=== PATIENT | male | born 1990 | race African-American/Black ===

== ENCOUNTER 2023-02-14 12:13 | Outpatient (CLI) | payer OTHER ==
[2023-02-14 18:21] LABS: BASOPHILS % (AUTO) 0.6 %; EOSINOPHILS # (AUTO) 0.1 10^3/uL (0.0-0.7); EOSINOPHILS % (AUTO) 2.5 %; HGB - HEMOGLOBIN 13.9 g/dL (14.0-18.0); LYMPHOCYTES # (AUTO) 2.7 10^3/uL (1.5-3.5); LYMPHOCYTES % (AUTO) 53.5 %; MEAN CORPUSCULAR HEMOGLOBIN 30.5 pg (27.0-31.0); MEAN CORPUSCULAR HGB CONC 34.8 g/dL (32.0-36.0); MEAN CORPUSCULAR VOLUME 87.9 fL (80.0-94.0); MEAN PLATELET VOLUME 11.3 fL (7.4-11.4); MONOCYTES # (AUTO) 0.4 10^3/uL (0.0-1.0); MONOCYTES % (AUTO) 6.8 %; NEUTROPHILS # (AUTO) 1.9 10^3/uL (1.5-6.6); NEUTROPHILS % (AUTO) 36.4 %; PLT - PLATELET COUNT 213 10^3/uL (130-450); RED BLOOD COUNT 4.55 10^6/uL (4.70-6.10); RED CELL DISTRIBUTION WIDTH 12.4 % (12.0-15.0); WHITE BLOOD COUNT 5.1 x10^3/uL (4.8-10.8)
[2023-02-14 18:45] LABS: ALBUMIN 4.3 g/dL (3.2-5.5); ALBUMIN/GLOBULIN RATIO 1.6 (1.0-2.2); BILIRUBIN,TOTAL 0.7 mg/dL (0.2-1.0); CALCIUM 9.6 mg/dL (8.5-10.3); POTASSIUM 4.5 mmol/L (3.5-4.5)
== END 2023-02-14 12:14 | disposition home or self-care (01) ==
LOC: LAB.N 12:13
PROVIDERS: ATTEND Registered Nurse
DX: R19.5 Other fecal abnormalities (principal); R10.9 Unspecified abdominal pain
CPT/HCPCS: 36415; 80053; 83690; 85025

== ENCOUNTER 2023-03-19 15:18 | Outpatient (CLI) | payer OTHER ==
[2023-03-19 19:35] LABS: BASOPHILS % (AUTO) 0.7 %; EOSINOPHILS # (AUTO) 0.2 10^3/uL (0.0-0.7); EOSINOPHILS % (AUTO) 2.6 %; HCT - HEMATOCRIT 39.9 % (42.0-52.0); HGB - HEMOGLOBIN 13.3 g/dL (14.0-18.0); LYMPHOCYTES # (AUTO) 2.6 10^3/uL (1.5-3.5); LYMPHOCYTES % (AUTO) 44.1 %; MEAN CORPUSCULAR HEMOGLOBIN 30.4 pg (27.0-31.0); MEAN CORPUSCULAR HGB CONC 33.3 g/dL (32.0-36.0); MEAN CORPUSCULAR VOLUME 91.3 fL (80.0-94.0); MONOCYTES # (AUTO) 0.3 10^3/uL (0.0-1.0); MONOCYTES % (AUTO) 5.3 %; NEUTROPHILS # (AUTO) 2.8 10^3/uL (1.5-6.6); PLT - PLATELET COUNT 185 10^3/uL (130-450); RED BLOOD COUNT 4.37 10^6/uL (4.70-6.10); RED CELL DISTRIBUTION WIDTH 12.5 % (12.0-15.0); WHITE BLOOD COUNT 5.9 x10^3/uL (4.8-10.8)
[2023-03-19 19:41] LABS: ALBUMIN 4.3 g/dL (3.2-5.5); ALBUMIN/GLOBULIN RATIO 1.9 (1.0-2.2); BILIRUBIN,TOTAL 0.4 mg/dL (0.2-1.0); CALCIUM 9.2 mg/dL (8.5-10.3); CREATININE 0.9 mg/dL (0.6-1.3); POTASSIUM 3.9 mmol/L (3.5-4.5); TOTAL PROTEIN 6.6 g/dL (6.4-8.9)
[2023-03-19 20:59] LABS: H. PYLORIS ANTIGEN STL NEGATIVE (Negative)
[2023-03-22 00:07] LABS: HBsAG SCREEN Negative (Negative); HCV AB Non Reactive (Non Reactive); HEPATITIS B SURFACE AB QUAL Reactive (.)
== END 2023-03-19 15:19 | disposition home or self-care (01) ==
LOC: LAB.N 15:18
PROVIDERS: ATTEND Physician Assistant
DX: R19.7 Diarrhea, unspecified (principal); R79.89 Other specified abnormal findings of blood chemistry; R10.13 Epigastric pain
CPT/HCPCS: 36415; 80053; 83690; 85025; 86704; 86706; 86709; 86803; 87045; 87046; 87177; 87209; 87338; 87340; 87427

== ENCOUNTER 2023-03-25 08:00 | Outpatient (CLI) | payer MEDICAID ==
[2023-03-25 18:09] LABS: FECAL OCCULT BLOOD (FIT) NEGATIVE (NEGATIVE)
== END 2023-03-25 23:59 | disposition home or self-care (01) ==
LOC: LAB.R 08:00
PROVIDERS: ATTEND Physician Assistant
DX: D64.9 Anemia, unspecified (principal)
CPT/HCPCS: 82274

== ENCOUNTER 2023-03-25 10:12 | Outpatient (CLI) | payer MEDICAID ==
[2023-03-25] MEDS ORDERED: DIATR MEGLU/DIATRIZOATE SODIUM 120 ML BOTTLE ONE (10:15)
[2023-03-25] MEDS ORDERED: DIATRIZOATE MEGLU/DIATRIZO SOD 30 ML BOTTLE PO ONE (15:16)
[2023-03-25] MEDS ORDERED: iohexoL-300 100 ML VIAL IVP ONE (15:16)
--- NOTE | 2023-03-25 16:59 | CT Report ---
PROCEDURE: ABDOMEN/PELVIS W INDICATIONS: ABD PAIN CONTRAST: 100ml omni 300 TECHNIQUE: After the administration of oral and intravenous contrast, 5 mm thick sections acquired from the diap hragms to the symphysis. 5 mm thick coronal and sagittal reformats were acquired. For radiation dos e reduction, the following was used: automated exposure control, adjustment of mA and/or kV accordin g to patient size. COMPARISON: None FINDINGS: Image quality: Excellent. Lung bases and heart: Unremarkable. Liver: No solid mass. Gallbladder and biliary tree: No radiopaque stones or wall thickening. No biliary dilation. Spleen: No splenomegaly. Pancreas: No pancreatic ductal dilation. Adrenals: No adrenal nodule. Kidneys and ureters: No hydronephrosis. No renal cystic lesion which requires follow up. No solid mas s. Bowel and peritoneum: No bowel distension. No pathologic free fluid. Lymph nodes: No central or retroperitoneal adenopathy. Vessels: No infrarenal aortic aneurysm. PELVIS Reproductive organs: Unremarkable. Bladder: No abnormal wall thickening, accounting for underdistension. Pelvic lymph nodes: No pelvic adenopathy by size criteria. Bones: No aggressive osseous abnormality. Other: No significant ventral or inguinal hernia. IMPRESSION: Normal abdominal CT. No findings to explain the patient's lower abdominal pain. No nephrolithiasis. N ormal appendix. No significant diverticular disease. Reviewed by: Dayton Aburto on 03/25/2023 3:58 PM [facility] Approved by: Dayton Aburto on 03/25/2023 3:58 PM [facility] Station ID: [id number]
== END 2023-03-25 10:13 | disposition home or self-care (01) ==
LOC: DI 10:12
PROVIDERS: ATTEND Physician Assistant
DX: R10.13 Epigastric pain (principal); R19.7 Diarrhea, unspecified; R10.30 Lower abdominal pain, unspecified
CPT/HCPCS: 74177; Q9963; Q9967

== ENCOUNTER 2023-05-11 07:33 | Day surgery (SDC) | payer MEDICAID | END 2023-05-11 07:34 | disposition home or self-care (01) | LOC: SDS 07:33 | PROVIDERS: ATTEND Surgery | DX: R19.5 Other fecal abnormalities (principal); K21.9 Gastro-esophageal reflux disease without esophagitis; Z53.09 Procedure and treatment not carried out because of other contraindication ==

== ENCOUNTER 2023-06-28 08:24 | Day surgery (SDC) | payer MEDICAID ==
[2023-06-28] MEDS: LACTATED RINGERS 1,000 ML IV ONE (08:30)
--- NOTE | 2023-06-28 10:03 | ANESTHESIA ---
Pre-Anesthesia VS, & Labs - Diagnosis GERD, abdominal pain, diarrhea - Procedure EGD and colonoscopy Vital Signs: Temp Pulse Resp BP Pulse Ox O2 Flow Rate 36.1 C L 61 16 125/62 100 06/28/23 08:36 06/28/23 08:36 06/28/23 08:36 06/28/23 08:36 06/28/23 08:36 Height: 5 ft 11 in Weight (kg): 101.3 kg Body Mass Index: 31.1 BMI Classification: Obese - NPO >8 hours Home Medications and Allergies Home Medications: Ambulatory Orders Fexofenadine [Amisha] 60 mg PO DAILY 06/28/23 Fexofenadine [Amisha] 60 mg PO DAILY 06/28/23 Allergies/Adverse Reactions: Allergies Allergy/AdvReac Type Severity Reaction Status Date / Time Penicillins AdvReac Severe Anaphylaxis Verified 05/10/23 12:26 Anes History & Medical History - Anesthetic History Family history of Anesthesia Complications: Denies Family history of Malignant Hyperthermia: Denies - Medical History Cardiovascular: reports: None Pulmonary: reports: None Gastrointestinal: reports: GERD, Other Urinary: reports: None Neuro: reports: None Musculoskeletal: reports: None Endocrine/Autoimmune: reports: None Skin: reports: None Smoking Status: Current every day smoker Psychosocial: reports: Cannabis History of Cancer?: No Exam General: Alert, Oriented x3, Cooperative, No acute distress Dental: WNL Mouth Openin Fingerbreadth Neck Mobility: Normal Mallampati classification: I Thyromental Distance: 4-6 cm Mental/Cognitive Status: Alert/Oriented X3, Normal for patient Plan Anesthesia Type: General, Total IV Consent for Procedure(s) Verified and Reviewed: Yes Code Status: Attempt Resuscitation ASA classification: 2-Mild systemic disease Is this case an emergency?: No
[2023-06-28] MEDS ORDERED: LIDOCAINE-MPF 2% 5 ML VIAL ONE (10:25)
[2023-06-28] MEDS ORDERED: MIDAZOLAM 2 MG/2 ML VIAL ONE (10:25)
[2023-06-28] MEDS ORDERED: PROPOFOL 500 MG/50 ML 500 MG/50 ML VIAL ONE (10:25)
[2023-06-28] MEDS: LACTATED RINGERS 400 ML IV ONE (11:21)
[2023-06-28 11:40] VITALS: BP 120/86; O2SAT 100
--- NOTE | 2023-06-28 15:02 | ANESTHESIA POST OP EVALUATION ---
Anesthesia Post Eval - Post Anesthesia Eval Vitals: Last Vital Signs Temp 36.2 C L 06/28/23 11:55 Pulse 62 06/28/23 11:55 Resp 16 06/28/23 11:55 BP 120/86 H 06/28/23 11:31 Pulse Ox 100 06/28/23 11:55 O2 Flow Rate CV Function Including HR & BP: Stable Pain Control: Satisfactory Nausea & Vomiting: Negative Mental Status: Baseline Respiratory Status: Airway Patent Hydration Status: Satisfactory Anesthesia Complications: None
== END 2023-06-28 08:25 | disposition home or self-care (01) ==
LOC: SDS 08:24
PROVIDERS: ATTEND Surgery
PROC: 0DBH8ZX Excision of Cecum, Via Natural or Artificial Opening Endoscopic, Diagnostic (ICD-10-PCS; 2023-06-28)
PROC: 0DBN8ZX Excision of Sigmoid Colon, Via Natural or Artificial Opening Endoscopic, Diagnostic (ICD-10-PCS; 2023-06-28)
PROC: 0DBM8ZX Excision of Descending Colon, Via Natural or Artificial Opening Endoscopic, Diagnostic (ICD-10-PCS; 2023-06-28)
PROC: 0DB98ZX Excision of Duodenum, Via Natural or Artificial Opening Endoscopic, Diagnostic (ICD-10-PCS; principal; 2023-06-28 09:30)
PROC: 0DB68ZX Excision of Stomach, Via Natural or Artificial Opening Endoscopic, Diagnostic (ICD-10-PCS; 2023-06-28 09:30)
DX: R10.13 Epigastric pain (principal); K21.9 Gastro-esophageal reflux disease without esophagitis; R19.7 Diarrhea, unspecified; K63.5 Polyp of colon
CPT/HCPCS: 43239; 45380; J7120

== ENCOUNTER 2023-08-01 11:14 | Outpatient (CLI) | payer OTHER ==
--- NOTE | 2023-08-01 16:23 | XRAY Report ---
PROCEDURE: Ankle 3+V RT INDICATIONS: RIGHT ACHILLES TENDINITS TECHNIQUE: 3 views of the ankle were acquired. COMPARISON: None. FINDINGS: Bones: No fractures or dislocations. Ankle mortise is normally aligned. No suspicious bony lesions . Soft tissues: No tibiotalar joint effusion. Achilles tendon appears normal. IMPRESSION: No acute bony abnormality. Reviewed by: Merle Lama MD on 08/01/2023 4:22 PM PDT Approved by: Merle Lama MD on 08/01/2023 4:22 PM PDT Station ID: [id number]
== END 2023-08-01 11:15 | disposition home or self-care (01) ==
LOC: DI 11:14
PROVIDERS: ATTEND Physician Assistant
DX: M76.61 Achilles tendinitis, right leg (principal)

== ENCOUNTER 2023-08-29 08:43 | Outpatient (CLI) | payer OTHER ==
--- NOTE | 2023-08-29 10:25 | XRAY Report ---
PROCEDURE: Ankle 3+V RT INDICATIONS: ACHILLES TENDONITIS,RIGHT TECHNIQUE: 3 views of the ankle were acquired. COMPARISON: 08/01/2023. FINDINGS: Bones: No fractures or dislocations. Ankle mortise is normally aligned. No suspicious bony lesions . Soft tissues: No tibiotalar joint effusion. Achilles tendon appears normal. IMPRESSION: No acute bony abnormality. Normal radiographic appearance of the Achilles tendon. No significant santoyo ge compared to prior study. Reviewed by: Samir Ascencio MD on 08/29/2023 10:24 AM PDT Approved by: Samir Ascencio MD on 08/29/2023 10:24 AM PDT Station ID: [id number]
== END 2023-08-29 08:44 | disposition home or self-care (01) ==
LOC: DI 08:43
PROVIDERS: ATTEND Physician Assistant Surgical
DX: M76.61 Achilles tendinitis, right leg (principal)